=== PATIENT | male | born 1980 | race Caucasian/White ===

== ENCOUNTER 2016-05-26 06:53 | Day surgery (SDC) | payer OTHER, BC ==
--- NOTE | 2016-05-28 08:34 | OR ---
ADMIT: 05/26/2016 RM/LOC: [facility] MR#: [id number] [address] [address] [facility] [id number] [place] [address] Operative/Delivery Room Report SEX: M AGE: 35 : 1980 SURGERY DATE: 05/26/2016 SURGEON: Nohemi Mendoza MD PRACTICE DIRECTOR: None. PREPROCEDURE DIAGNOSES: 1. Lumbar spondylosis. 2. Lumbago. POSTPROCEDURE DIAGNOSES: 1. Lumbar spondylosis. 2. Lumbago. PROCEDURE PERFORMED: Right L3, L4, L5 and S1 lumbar radiofrequency ablation. INDICATIONS FOR PROCEDURE: The patient is a pleasant gentleman with history of chronic low back pain secondary to above-mentioned diagnosis who had a good diagnostic facet injection comes here for planned lumbar radiofrequency ablation. ANESTHESIA: Local without sedation. ESTIMATED BLOOD LOSS: Zero. COMPLICATIONS: None immediately evident. DESCRIPTION OF THE PROCEDURE: After the patient was seen in the preoperative area, vitals signs were taken. Prior to the procedure, the risks, benefits, and alternative therapies were discussed at length. Patient consent was obtained and updated. The patient was taken to the fluoroscopy suite and placed on the fluoroscopy table in the prone position. Pressure points were padded to comfort, monitors applied, and a timeout performed. ADMIT: 05/26/2016 RM/LOC: [facility] MR#: [id number] [address] [address] [facility] [address] [place] [address] Operative/Delivery Room Report SEX: M AGE: 35 : 1980 Fluoroscopy was brought in to identify the transverse process of the right L3, L4, L5, and S1. To anesthetize the skin, a spinal cannula was placed near the junction of pedicle and transverse process. Once we obtained appropriate parameters for sensory motor testing, we proceeded with radiofrequency thermocoagulation at each level, which consisted of 80 degrees for 90 seconds. The patient tolerated the procedure well. The patient did not feel any stimulation below his knees. The patient was discharged to post anesthesia care without any immediate complications. PLAN: Discharge instructions were given, followup scheduled. The patient was discharged home with a warehouse delivery driver. Nohemi Mendoza MD/ juan manuel JOB #: [id number] CC: Nohemi Mendoza, Attending Physician Justin Meehan, Family Physician
== END 2016-05-26 09:16 | disposition home or self-care (01) ==
LOC: SSS 06:53
PROC: BR16YZZ Fluoroscopy of Lumbar Facet Joint(s) using Other Contrast (ICD-10-PCS; principal; 2016-05-26)
PROC: 3E0T3TZ Introduction of Destructive Agent into Peripheral Nerves and Plexi, Percutaneous Approach (ICD-10-PCS; principal; 2016-05-26)
DX: G89.29 Other chronic pain (principal); M47.816 Spondylosis without myelopathy or radiculopathy, lumbar region; M51.37 Other intervertebral disc degeneration, lumbosacral region; Z90.49 Acquired absence of other specified parts of digestive tract

== ENCOUNTER 2016-06-16 07:33 | Day surgery (SDC) | payer OTHER ==
--- NOTE | 2016-06-17 07:52 | OR ---
ADMIT: 06/16/2016 RM/LOC: [facility] MR#: [id number] [address] [address] [facility] [address] [address] Operative/Delivery Room Report SEX: M AGE: 35 : 1980 SURGERY DATE: 06/16/2016 SURGEON: Nohemi Mendoza MD CANAL BOAT OPERATOR: None. PREPROCEDURE DIAGNOSES: 1. Lumbar spondylosis. 2. Lumbago. POSTPROCEDURE DIAGNOSES: 1. Lumbar spondylosis. 2. Lumbago. PROCEDURE PERFORMED: Left L3, L4, L5, and S1 medial branch radiofrequency thermocoagulation. INDICATIONS FOR PROCEDURE: ANESTHESIA: Local without sedation. ESTIMATED BLOOD LOSS: Zero. COMPLICATIONS: None immediately evident. DESCRIPTION OF THE PROCEDURE: After the patient was seen in the preoperative area, vitals signs were taken. Prior to the procedure, the risks, benefits, and alternative therapies were discussed at length. Patient consent was obtained and updated. The patient was taken to the fluoroscopy suite and placed on the fluoroscopy table in the prone position. Pressure points were padded to comfort, monitors applied, and a timeout performed. ADMIT: 06/16/2016 RM/LOC: [facility] MR#: [id number] [id number] [address] [facility] [address] [address] Operative/Delivery Room Report SEX: M AGE: 35 : 1980 Fluoroscopy was brought in to identify the transverse process of the left- sided L3, L4, L5, and S1. To anesthetize the skin, a spinal cannula was placed near the junction of pedicle and transverse process. Once we obtained appropriate parameters for sensory motor testing, we proceeded with radiofrequency thermocoagulation at each level, which consisted of 80 degrees for 90 seconds. The patient tolerated the procedure well. The patient did not feel any stimulation below his knees. The patient was discharged to post anesthesia care without any immediate complications. PLAN: Discharge instructions were given, followup scheduled. The patient was discharged home with a tour bus driver. Nohemi Mendoza MD/ juan maunel JOB #: [id number] CC: Nohemi Mendoza, Attending Physician NO FAMILY PHYSICIAN, Family Physician
== END 2016-06-16 09:28 | disposition home or self-care (01) ==
LOC: SSS 07:33
PROC: 3E0T3TZ Introduction of Destructive Agent into Peripheral Nerves and Plexi, Percutaneous Approach (ICD-10-PCS; principal; 2016-06-16)
PROC: BR16YZZ Fluoroscopy of Lumbar Facet Joint(s) using Other Contrast (ICD-10-PCS; principal; 2016-06-16)
DX: M47.816 Spondylosis without myelopathy or radiculopathy, lumbar region (principal); Z79.899 Other long term (current) drug therapy; Z90.49 Acquired absence of other specified parts of digestive tract; Z98.890 Other specified postprocedural states